=== PATIENT | female | born 1940 | race Caucasian/White ===

== ENCOUNTER 2017-06-02 17:52 | Emergency (ER) | payer OTHER, BC ==
[~2017-06-02] VITALS: Ht 160 cm; Wt 95.4 kg
[~2017-06-02 17:52] MED LIST: ALLOPURINOL100 MG PO; AMBIEN CR12.5 MG PO; ARICEPT5 MG PO; AVENTYL,PAMELOR10 M1 PO; BIOTIN2500 MCG PO; BONIVA150 MG PO; CARDURA4 MG PO; CELEXA20 MG PO; CENTRUM SILVER1 EAC3 PO; CINNAMON BARK500 MG PO; CRESTOR20 MG PO; CYANOCOBALAM1000 MCG PO; DIAZEPAM5 MG PO; DOXAZOSIN MESYLA2 MG PO; ECPIRIN325 M1 PO; FISH OIL CONC1 EACH PO; FISH OIL300 MG PO; FLEXERIL10 MG PO; FUROSEMIDE20 MG PO; GLUCOSAMINE &1 EAC1 PO; HYDROCHLOROTHIA25 MG PO; HYDRODIURIL,O12.5 M2 PO; INDERAL80 MG PO; INDERIDE 40/1 TABLET PO; LAMICTAL25 MG PO; LASIX40 MG PO; LEXAPRO10 MG PO; LIDODERM 5% P1 PATCH TD; LOPID600 M1 PO; LUMIGAN 0.50 DROP/2. BOTH EYES; MARTINIC1 EACH PO; MEMANTINE HCL5 MG PO; METHYLDOPA250 MG PO; MORPHINE SULFAT15 MG PO; MYSOLINE250 MG PO; NEURONTIN300 MG PO; NORCO 7.5/321 TABLET PO; SIMVASTATIN40 MG PO; TOPAMAX50 MG PO; Theragran-M,Centrum, PO; VALIUM2 MG PO; VICODIN ES 71 TABLET PO; VITAMIN B-650 M1 PO; VITAMIN B650 MG PO; VITAMIN D2000 UNIT PO; VITAMIN D31000 UNIT PO; VITAMIN-E400 INTUNI PO; WELLBUTRIN SR150 MG PO; ZESTRIL,PRINIVI20 MG PO; ZESTRIL20 MG PO; Zocor PO; [UNRECOGNIZED DRUG - OTHER] PO; [UNRECOGNIZED DRUG - OTHER] PO; [UNRECOGNIZED DRUG - OTHER] PO
[2017-06-02] MEDS ORDERED: PERCOCET 5/31 TABLET PO (22:04)
[2017-06-03 00:11] VITALS: BP 157/93
== END 2017-06-02 23:24 | disposition home or self-care (01) ==
LOC: EME 17:52
PROC: 0RSKXZZ Reposition Left Shoulder Joint, External Approach (ICD-10-PCS; principal; 2017-06-02)
DX: S43.015A Anterior dislocation of left humerus, initial encounter (principal); S43.035A Inferior dislocation of left humerus, initial encounter; W01.0XXA Fall on same level from slipping, tripping and stumbling without subsequent striking against object, initial encounter; I12.9 Hypertensive chronic kidney disease with stage 1 through stage 4 chronic kidney disease, or unspecified chronic kidney disease; E11.22 Type 2 diabetes mellitus with diabetic chronic kidney disease; Z85.828 Personal history of other malignant neoplasm of skin
CPT/HCPCS: 73030; 73060; 99281; 99285

== ENCOUNTER 2017-07-21 01:42 | Inpatient (IN) | payer OTHER, BC ==
[~2017-07-21] VITALS: Ht 160 cm; Wt 95.6 kg
[~2017-07-21 01:42] MED LIST changes: +PERCOCET 5/31 TABLET PO
[2017-07-21 02:36] LABS: HEMATOCRIT 34.7 % (36.0-46.0); HEMOGLOBIN 11.8 G/DL (11.9-15.5); MCH 32.2 PG (29.0-34.0); MCV 94.6 FL (83-99); PLATELET COUNT 148 K/uL (156-360); RBC DIS.WIDTH-CV 14.1 % (11.8-14.6); RBC DIS.WIDTH-SD 49.1 % (39-53); RED BLOOD COUNT 3.67 M/uL (3.80-5.20); WHITE BLOOD COUNT 10.4 K/uL (4.1-10.2)
[2017-07-21 02:43] LABS: INTER. NORMALIZED RATIO 1.2
[2017-07-21 02:46] LABS: ALBUMIN 3.7 g/dL (3.2-4.8); CHLORIDE 100 mEq/L (99-109); PTT 26.5 SEC (25-37); SODIUM 136 mEq/L (136-147)
[2017-07-21 02:48] LABS: GLUCOSE 146 mg/dL (70-99)
[2017-07-21 02:50] LABS: TOTAL BILIRUBIN 0.7 mg/dL (0.0-1.0)
[2017-07-21 02:52] LABS: ALKALINE PHOSPHATASE 57 IU/L (3-129); CREATININE 1.6 mg/dL (0.6-1.3); GFR ESTIMATE (CALCULATED) 33 mL/min/
[2017-07-21 02:53] LABS: UREA NITROGEN (BUN) 49 mg/dL (9-23)
[2017-07-21 02:54] LABS: AST (GOT) 35 IU/L (2-34)
[2017-07-21 02:55] LABS: ALT (GPT) 21 IU/L (3-49); LIPASE 21 U/L (1.0-51.0)
[2017-07-21 02:57] LABS: TROP-I INTERPRETATION NEGATIVE; TROPONIN-I 0.02 ng/mL (0.0-0.30)
[2017-07-21] MEDS ORDERED: TOVIAZ4 MG PO (08:16)
[2017-07-21] MEDS ORDERED: XALATAN2.5 ML BOTH EYES (08:16)
[2017-07-21] MEDS ORDERED: ARTIFICIAL TEAR1510 BOTH EYES (08:16)
[2017-07-21] MEDS ORDERED: VALIUM5 MG PO (08:18)
[2017-07-21] MEDS ORDERED: BRINTELLIX20 MG PO (08:18)
[2017-07-21] MEDS ORDERED: COLACE100 MG PO (08:19)
[2017-07-21] MEDS ORDERED: PROCARDIA XL30 MG PO (08:19)
[2017-07-21] MEDS ORDERED: BIOFREEZE TP (08:21)
[2017-07-21] MEDS ORDERED: MELATONIN10 M1 PO (08:21)
[2017-07-21] MEDS ORDERED: GLUCOPHAGE500 MG PO (08:21)
[2017-07-21] MEDS ORDERED: NAMZARIC 28 MG1 EACH PO (08:22)
[2017-07-21] MEDS ORDERED: LO-DOSE ASPIRIN81 M1 PO (08:22)
[2017-07-21] MEDS ORDERED: PERCOCET 10/1 TABLET PO (08:22)
[2017-07-21] MEDS ORDERED: TYLENOL EXTRA500 MG PO (08:23)
[2017-07-21] MEDS ORDERED: ZANAFLEX4 MG PO (08:23)
[2017-07-21] MEDS ORDERED: LIDODERM 5% P1 PATCH TD (08:26)
[2017-07-21 10:23] VITALS: BP 94/49
[2017-07-21 13:45] LABS: APPEARANCE CLEAR ((CLEAR)); BILIRUBIN NEGATIVE; BLOOD SMALL; COLOR YELLOW ((YELLOW)); GLUCOSE (STRIP) NEGATIVE; KETONES NEGATIVE; LEUKOCYTES NEGATIVE; NITRITE NEGATIVE; PROTEIN (STRIP) NEGATIVE; UROBILINOGEN 0.2 MG/DL (0.2-1.0)
[2017-07-21 14:22] VITALS: BP 114/53
[2017-07-21 14:46] LABS: BACTERIA RARE /HPF; EPITHELIAL CELLS RARE /HPF; HYALINE CASTS 0-5 /LPF; MUCUS NONE SEEN /LPF; RED BLOOD CELLS NONE SEEN /HPF (0-5); WHITE BLOOD CELLS RARE /HPF (0-5)
[2017-07-21 16:11] LABS: UR CREATININE CONCENTRATION 78.4 MG/DL
[2017-07-21 20:05] VITALS: BP 131/63
[2017-07-21 23:05] VITALS: BP 122/59
[2017-07-22 01:17] LABS: CREATINE KINASE 692 IU/L (1-294); TOTAL CK 692 IU/L (1-294)
[2017-07-22 01:23] LABS: CK-MB 4.2 ng/mL (0.0-4.9); CKMB RELATIVE INDEX 0.6 (0.0-3.9)
[2017-07-22 04:32] VITALS: BP 149/67
[2017-07-22 05:25] LABS: BASOPHIL (%) 0.1 % (0-1); EOSINOPHIL (%) 1.6 % (0-5); EOSINOPHIL COUNT 0.1 K/uL (0-0.3); HEMATOCRIT 35.8 % (36.0-46.0); HEMOGLOBIN 11.5 G/DL (11.9-15.5); IMMATURE GRANULOCYTE (%) 0.4 % (0.0-0.7); LYMPHOCYTE (%) 9.9 % (15-42); LYMPHOCYTE COUNT 0.8 K/uL (1.0-2.8); MCH 30.4 PG (29.0-34.0); MCHC 32.1 G/DL (30.0-36.0); MCV 94.7 FL (83-99); MONOCYTE (%) 11.1 % (3-12); MONOCYTE COUNT 0.9 K/uL (0-0.8); NEUTROPHIL (%) 76.9 % (45-76); NEUTROPHIL COUNT 6.1 K/uL (1.8-6.4); PLATELET COUNT 155 K/uL (156-360); RBC DIS.WIDTH-SD 48.9 % (39-53); RED BLOOD COUNT 3.78 M/uL (3.80-5.20); WHITE BLOOD COUNT 7.9 K/uL (4.1-10.2)
[2017-07-22 05:49] LABS: ALBUMIN 3.3 G/DL (3.2-4.8); ALKALINE PHOSPHATASE 48 IU/L (3-129); ALT (GPT) 23 IU/L (3-49); AST (GOT) 30 IU/L (2-34); CHLORIDE 104 MEQ/L (99-109); GFR ESTIMATE (CALCULATED) > 59 mL/min/; GLUCOSE 169 mg/dL (70-99); MAGNESIUM 1.8 mg/dl (1.3-2.7); POTASSIUM 3.7 MEQ/L (3.7-5.4); SODIUM 140 MEQ/L (136-147); TOTAL BILIRUBIN 0.5 MG/DL (0.0-1.0); TOTAL PROTEIN 5.2 G/DL (6.4-8.3)
[2017-07-22 05:52] LABS: CREATININE 0.8 MG/DL (0.6-1.3); UREA NITROGEN (BUN) 23 mg/dL (9-23)
[2017-07-22 07:34] LABS: CREATINE KINASE 472 IU/L (1-294); TOTAL CK 472 IU/L (1-294)
[2017-07-22 08:00] LABS: CK-MB 3.5 ng/mL (0.0-4.9); CKMB RELATIVE INDEX 0.7 (0.0-3.9)
[2017-07-22 09:02] VITALS: BP 143/78
[2017-07-22 12:42] VITALS: BP 136/74
[2017-07-22 16:19] VITALS: BP 148/79
[2017-07-22 19:48] VITALS: BP 133/64
[2017-07-22 23:39] VITALS: BP 134/71
[2017-07-23] VITALS (7 sets, daily range): BP systolic 118–165; BP diastolic 64–79
[2017-07-23 05:37] LABS: BASOPHIL (%) 0.1 % (0-1); EOSINOPHIL (%) 0.1 % (0-5); HEMATOCRIT 34.8 % (36.0-46.0); HEMOGLOBIN 11.7 G/DL (11.9-15.5); IMMATURE GRANULOCYTE (%) 0.7 % (0.0-0.7); LYMPHOCYTE (%) 11.1 % (15-42); LYMPHOCYTE COUNT 0.8 K/uL (1.0-2.8); MCH 31.8 PG (29.0-34.0); MCHC 33.6 G/DL (30.0-36.0); MCV 94.6 FL (83-99); MONOCYTE (%) 10.1 % (3-12); MONOCYTE COUNT 0.7 K/uL (0-0.8); NEUTROPHIL (%) 77.9 % (45-76); NEUTROPHIL COUNT 5.5 K/uL (1.8-6.4); PLATELET COUNT 167 K/uL (156-360); RBC DIS.WIDTH-CV 13.5 % (11.8-14.6); RED BLOOD COUNT 3.68 M/uL (3.80-5.20)
[2017-07-23 06:17] LABS: CHLORIDE 104 MEQ/L (99-109); CREATININE 0.7 MG/DL (0.6-1.3); GFR ESTIMATE (CALCULATED) > 59 mL/min/; GLUCOSE 153 mg/dL (70-99); POTASSIUM 4.1 MEQ/L (3.7-5.4); SODIUM 139 MEQ/L (136-147); UREA NITROGEN (BUN) 19 mg/dL (9-23)
[2017-07-23 11:57] LABS: CREATINE KINASE 237 IU/L (1-294); TOTAL CK 237 IU/L (1-294)
[2017-07-23 12:05] LABS: C-REACTIVE PROTEIN 181.8 MG/L (0-10)
[2017-07-23 13:03] LABS: CK-MB 2.5 ng/mL (0.0-4.9); CKMB RELATIVE INDEX 1.1 (0.0-3.9)
[2017-07-24 03:38] VITALS: BP 160/75
[2017-07-24 06:11] LABS: BASOPHIL (%) 0.3 % (0-1); EOSINOPHIL (%) 1.6 % (0-5); EOSINOPHIL COUNT 0.2 K/uL (0-0.3); HEMATOCRIT 37.2 % (36.0-46.0); HEMOGLOBIN 12.2 G/DL (11.9-15.5); IMMATURE GRANULOCYTE (%) 0.8 % (0.0-0.7); LYMPHOCYTE COUNT 1.8 K/uL (1.0-2.8); MCH 31.1 PG (29.0-34.0); MCHC 32.8 G/DL (30.0-36.0); MCV 94.9 FL (83-99); MONOCYTE (%) 7.3 % (3-12); MONOCYTE COUNT 0.7 K/uL (0-0.8); NEUTROPHIL COUNT 6.8 K/uL (1.8-6.4); PLATELET COUNT 191 K/uL (156-360); RBC DIS.WIDTH-CV 13.5 % (11.8-14.6); RBC DIS.WIDTH-SD 47.5 % (39-53); RED BLOOD COUNT 3.92 M/uL (3.80-5.20); WHITE BLOOD COUNT 9.6 K/uL (4.1-10.2)
[2017-07-24 06:33] LABS: C-REACTIVE PROTEIN 105.6 MG/L (0-10); CHLORIDE 107 MEQ/L (99-109); CREATININE 0.8 MG/DL (0.6-1.3); GFR ESTIMATE (CALCULATED) > 59 mL/min/; GLUCOSE 137 mg/dL (70-99); POTASSIUM 3.8 MEQ/L (3.7-5.4); SODIUM 142 MEQ/L (136-147); UREA NITROGEN (BUN) 20 mg/dL (9-23)
[2017-07-24 07:30] VITALS: BP 150/70
[2017-07-24 11:40] VITALS: BP 160/77
[2017-07-24 16:46] VITALS: BP 138/94
[2017-07-24 19:29] VITALS: BP 149/86
[2017-07-24 23:32] VITALS: BP 120/72
[2017-07-25 03:34] VITALS: BP 118/67
[2017-07-25 06:13] LABS: BASOPHIL (%) 0.5 % (0-1); BASOPHIL COUNT 0.1 K/uL (0-0.1); EOSINOPHIL (%) 1.8 % (0-5); EOSINOPHIL COUNT 0.2 K/uL (0-0.3); HEMOGLOBIN 12.2 G/DL (11.9-15.5); IMMATURE GRANULOCYTE (%) 1.4 % (0.0-0.7); LYMPHOCYTE (%) 21.2 % (15-42); LYMPHOCYTE COUNT 2.1 K/uL (1.0-2.8); MCH 31.1 PG (29.0-34.0); MCHC 32.1 G/DL (30.0-36.0); MCV 96.9 FL (83-99); MONOCYTE (%) 6.1 % (3-12); MONOCYTE COUNT 0.6 K/uL (0-0.8); NEUTROPHIL COUNT 6.9 K/uL (1.8-6.4); PLATELET COUNT 175 K/uL (156-360); RBC DIS.WIDTH-CV 13.5 % (11.8-14.6); RBC DIS.WIDTH-SD 48.5 % (39-53); RED BLOOD COUNT 3.92 M/uL (3.80-5.20)
[2017-07-25 06:31] LABS: CHLORIDE 107 MEQ/L (99-109); CREATININE 0.9 MG/DL (0.6-1.3); GFR ESTIMATE (CALCULATED) > 59 mL/min/; GLUCOSE 104 mg/dL (70-99); SODIUM 142 MEQ/L (136-147); UREA NITROGEN (BUN) 21 mg/dL (9-23)
[2017-07-25 08:00] VITALS: BP 187/83
[2017-07-25 11:41] VITALS: BP 185/84
[2017-07-25 16:00] VITALS: BP 188/88
[2017-07-25 17:20] LABS: C DIFF TOXIN NEGATIVE (NEGATIVE)
[2017-07-25 20:21] VITALS: BP 182/85
[2017-07-25 23:38] VITALS: BP 188/79
[2017-07-26 00:39] VITALS: BP 182/87
[2017-07-26 00:56] VITALS: BP 160/72
[2017-07-26 04:34] VITALS: BP 166/76
[2017-07-26 06:13] LABS: BASOPHIL (%) 0.4 % (0-1); EOSINOPHIL (%) 1.4 % (0-5); EOSINOPHIL COUNT 0.1 K/uL (0-0.3); HEMATOCRIT 37.8 % (36.0-46.0); HEMOGLOBIN 12.6 G/DL (11.9-15.5); IMMATURE GRANULOCYTE (%) 2.9 % (0.0-0.7); LYMPHOCYTE (%) 22.5 % (15-42); LYMPHOCYTE COUNT 2.3 K/uL (1.0-2.8); MCH 31.4 PG (29.0-34.0); MCHC 33.3 G/DL (30.0-36.0); MCV 94.3 FL (83-99); MONOCYTE (%) 5.4 % (3-12); MONOCYTE COUNT 0.6 K/uL (0-0.8); NEUTROPHIL (%) 67.4 % (45-76); NEUTROPHIL COUNT 6.9 K/uL (1.8-6.4); NRBC (%) 0.2 /100 WBC (0-0); PLATELET COUNT 203 K/uL (156-360); RBC DIS.WIDTH-CV 13.3 % (11.8-14.6); RED BLOOD COUNT 4.01 M/uL (3.80-5.20); WHITE BLOOD COUNT 10.3 K/uL (4.1-10.2)
[2017-07-26 06:27] LABS: CHLORIDE 108 MEQ/L (99-109); CREATININE 0.8 MG/DL (0.6-1.3); GFR ESTIMATE (CALCULATED) > 59 mL/min/; GLUCOSE 99 mg/dL (70-99); POTASSIUM 3.7 MEQ/L (3.7-5.4); SODIUM 144 MEQ/L (136-147); UREA NITROGEN (BUN) 16 mg/dL (9-23)
[2017-07-26 08:03] VITALS: BP 158/84
[2017-07-26 12:49] VITALS: BP 151/78
[2017-07-26] MEDS ORDERED: PREDNISONE5 MG PO (15:43)
[2017-07-26] MEDS ORDERED: NOVOLOG 10100 UNITS/ SC (15:44)
[2017-07-26] MEDS ORDERED: BENZONATATE100 MG PO (15:46)
[2017-07-26] MEDS ORDERED: DUONEB 2.5-0.5 M3 ML AEROSOL (15:47)
[2017-07-26] MEDS ORDERED: TRAMADOL HCL50 MG PO (15:48)
[2017-07-26] MEDS ORDERED: Robitussin DM PO (15:48)
[2017-07-26 16:04] VITALS: BP 171/75
== END 2017-07-26 18:49 | DRG 683 ==
LOC: EME 01:42 → 4EAST 07:45 → 5SOUTH 07:45 → EDOF 07:45 → ENRESERV 07:53 → 5SOUTH 09:55 → ENRESERV 12:44 → 4EAST 14:13 → ENRESERV 07-23 08:21 → 5SOUTH 07-23 11:59
PROVIDERS: Emergency Medicine; Internal Medicine; Internal Medicine Nephrology
DX: N17.0 Acute kidney failure with tubular necrosis (principal); M62.82 Rhabdomyolysis; F33.9 Major depressive disorder, recurrent, unspecified; I13.0 Hypertensive heart and chronic kidney disease with heart failure and stage 1 through stage 4 chronic kidney disease, or unspecified chronic kidney disease; J98.11 Atelectasis; J44.1 Chronic obstructive pulmonary disease with (acute) exacerbation; N18.3 Chronic kidney disease, stage 3 (moderate); E11.22 Type 2 diabetes mellitus with diabetic chronic kidney disease; E66.9 Obesity, unspecified; Q63.0 Accessory kidney; E78.5 Hyperlipidemia, unspecified; G47.33 Obstructive sleep apnea (adult) (pediatric); M19.90 Unspecified osteoarthritis, unspecified site; H40.9 Unspecified glaucoma; M81.0 Age-related osteoporosis without current pathological fracture; G30.9 Alzheimer's disease, unspecified; F02.80 Dementia in other diseases classified elsewhere, unspecified severity, without behavioral disturbance, psychotic disturbance, mood disturbance, and anxiety; F41.9 Anxiety disorder, unspecified; G43.909 Migraine, unspecified, not intractable, without status migrainosus; I16.0 Hypertensive urgency; I27.20 Pulmonary hypertension, unspecified; I50.9 Heart failure, unspecified; J20.9 Acute bronchitis, unspecified; M10.9 Gout, unspecified; R09.02 Hypoxemia; Z96.653 Presence of artificial knee joint, bilateral; R29.6 Repeated falls; I95.9 Hypotension, unspecified; Z96.1 Presence of intraocular lens; Z79.82 Long term (current) use of aspirin; Z79.84 Long term (current) use of oral hypoglycemic drugs; Z86.011 Personal history of benign neoplasm of the brain; Z86.73 Personal history of transient ischemic attack (TIA), and cerebral infarction without residual deficits; Z90.710 Acquired absence of both cervix and uterus; Z91.81 History of falling; Z90.5 Acquired absence of kidney; Z98.41 Cataract extraction status, right eye; Z98.42 Cataract extraction status, left eye; Z68.37 Body mass index [BMI] 37.0-37.9, adult
CPT/HCPCS: 70450; 71046; 71250; 74176; 76770; 80048; 80053; 81003; 82550; 82550 91; 82553; 82570; 82948; 83605; 83690; 83735; 83880; 84156; 84484; 85025; 85027; 85610; 85651; 85730; 86140; 87040; 87086; 87493; 87502; 93005; 93306; 94640; 94640 76; 94760; 94799; 99202; 99281; 99285; J1644; J1815; J1940; J7030; J7040; J7512